=== PATIENT | female | born 2000 | race Caucasian/White ===

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

== ENCOUNTER → 2023-04-28 13:53 | Outpatient (BNVA) | payer OTHER, SELFPAY | PROVIDERS: PCP Family Medicine; Visit Provider Nurse Practitioner Family | DX: R53.83 Other fatigue (principal); K21.9 Gastro-esophageal reflux disease without esophagitis; Z11.3 Encounter for screening for infections with a predominantly sexual mode of transmission | CPT/HCPCS: 80053; 81003; 82306; 82607; 82746; 83735; 84443; 85025; 86592; 87086; 87491; 87591; 87661 ==

== ENCOUNTER → 2025-01-21 13:30 | Outpatient (BNVA) | payer OTHER, SELFPAY | PROVIDERS: PCP Nurse Practitioner Family; Visit Provider Nurse Practitioner Family | DX: Z30.019 Encounter for initial prescription of contraceptives, unspecified (principal) | CPT/HCPCS: 81000; 81025 ==